=== PATIENT | male | born 1985 | race Two or more races ===

== ENCOUNTER 2017-05-26 11:15 | Emergency (ER) | payer SELFPAY ==
[~2017-05-26] VITALS: Ht 182.9 cm; Wt 76.2 kg
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
[2017-05-26] MEDS ORDERED: LEVETIRACETAM (250 MG) 250 MG TABLET PO ONE ×2 (11:30→11:32)
--- NOTE | 2017-05-26 12:16 | NUR ---
Patient discharged to home in stable condition. Written and verbal after care instructions given. Patient verbalizes understanding of instruction.
[2017-05-26 12:17] VITALS: BP 119/81
== END 2017-05-26 12:18 | disposition home or self-care (01) ==
LOC: ER 11:17
DX: G40.909 Epilepsy, unspecified, not intractable, without status epilepticus (principal); V89.2XXA Person injured in unspecified motor-vehicle accident, traffic, initial encounter; Y93.89 Activity, other specified; Y92.413 State road as the place of occurrence of the external cause; Y99.8 Other external cause status
CPT/HCPCS: A4606; Z7610